=== PATIENT | male | born 1990 | race African-American/Black ===

== ENCOUNTER 2016-08-21 12:01 | Emergency (ER) | payer MEDICAID ==
[~2016-08-21] VITALS: Ht 182.9 cm; Wt 76.0 kg
[2016-08-21] MEDS ORDERED: IBUPROFEN 600MG TABLET PO ONE (14:15)
[2016-08-21 14:21] VITALS: BP 132/89
== END 2016-08-21 16:08 | disposition home or self-care (01) ==
LOC: ER 14:16
DX: M25.561 Pain in right knee (principal); M79.89 Other specified soft tissue disorders; F17.210 Nicotine dependence, cigarettes, uncomplicated; Z91.81 History of falling
CPT/HCPCS: 73562; 99284

== ENCOUNTER 2016-12-21 12:08 | Emergency (ER) | payer MEDICAID ==
[~2016-12-21] VITALS: Ht 182.9 cm; Wt 78.0 kg
[2016-12-21] MEDS ORDERED: VISCOUS LIDOCAINE 2% 15 ML UDC MM PRN (15:00)
[2016-12-21 16:15] VITALS: BP 124/85
== END 2016-12-21 16:22 | disposition home or self-care (01) ==
LOC: ER 12:37
DX: J06.9 Acute upper respiratory infection, unspecified (principal); J45.909 Unspecified asthma, uncomplicated
CPT/HCPCS: 87070; 87430; 87804; 99284

== ENCOUNTER 2016-12-22 19:53 | Emergency (ER) | payer MEDICAID ==
[~2016-12-22] VITALS: Ht 182.9 cm; Wt 78.0 kg
[2016-12-22 20:37] VITALS: BP 113/72
== END 2016-12-22 23:24 | disposition home or self-care (01) ==
LOC: ER 21:13
DX: H10.89 Other conjunctivitis (principal); J45.909 Unspecified asthma, uncomplicated
CPT/HCPCS: 99283

== ENCOUNTER 2017-02-10 18:09 | Emergency (ER) | payer MEDICAID ==
[~2017-02-10] VITALS: Ht 185.4 cm; Wt 64.0 kg
[2017-02-10] MEDS ORDERED: IBUPROFEN 600MG TABLET PO ONE (20:30)
[2017-02-10 21:43] VITALS: BP 128/74
== END 2017-02-10 21:43 | disposition home or self-care (01) ==
LOC: ER 18:29
DX: J02.9 Acute pharyngitis, unspecified (principal); R03.0 Elevated blood-pressure reading, without diagnosis of hypertension; J45.909 Unspecified asthma, uncomplicated; F17.210 Nicotine dependence, cigarettes, uncomplicated; F12.90 Cannabis use, unspecified, uncomplicated
CPT/HCPCS: 87070; 87430; 99284

== ENCOUNTER 2017-06-08 01:33 | Emergency (ER) | payer MEDICAID ==
[~2017-06-08] VITALS: Ht 182.9 cm; Wt 79.5 kg
[2017-06-08 01:40] VITALS: BP 122/82
== END 2017-06-08 03:20 | disposition left against medical advice (07) ==
LOC: ER 01:33
DX: R06.00 Dyspnea, unspecified (principal); Z53.21 Procedure and treatment not carried out due to patient leaving prior to being seen by health care provider

== ENCOUNTER 2017-06-08 14:14 | Emergency (ER) | payer MEDICAID ==
[~2017-06-08] VITALS: Ht 182.9 cm; Wt 79.5 kg
[2017-06-08 16:18] LABS: CLARITY URINE CLEAR (CLEAR); COLOR URINE YELLOW (YELLOW); KETONES URINE TRACE (NEGATIVE); LEUKOCYTE ESTERASE URINE NEGATIVE (NEGATIVE); NITRITE URINE NEGATIVE (NEGATIVE); OCCULT BLOOD URINE NEGATIVE (NEGATIVE); PROTEIN URINE NEGATIVE (NEGATIVE); UROBILINOGEN URINE 0.2 E.U./dL (0.2-1.0)
[2017-06-08] MEDS ORDERED: SODIUM CHLORIDE 0.9% 1,000 ML IV ONE (18:12)
[2017-06-08] MEDS ORDERED: ONDANSETRON HCL 4MG/2ML VIAL IV STA (18:12)
[2017-06-08] MEDS ORDERED: ONDANSETRON HCL 4MG/2ML VIAL IV ONE (18:15)
[2017-06-08 19:09] LABS: BASOPHILS % 0.8 % (0.0-2.0); EOSINOPHILS % 1.2 % (0.0-5.0); HEMATOCRIT. 45.6 % (42.0-52.0); HEMOGLOBIN. 15.9 g/dL (14.0-18.0); LYMPHOCYTES % 28.8 % (20.0-50.0); MEAN CORPUSCULAR HEMOGLOBIN 33.5 pg (28.0-32.0); MEAN CORPUSCULAR VOLUME 95.8 fL (80.0-94.0); MEAN PLATELET VOLUME 8.9 fl (7.4-10.4); MONOCYTES % 10.8 % (2.0-8.0); NEUTROPHILS % 58.4 % (40.0-76.0); PLATELET 265 x1000/uL (130-400); RED BLOOD CELL COUNT 4.76 mill/uL (4.7-6.1); RED CELL DISTRIBUTION WIDTH 12.8 % (11.6-14.6)
[2017-06-08 19:19] LABS: PROTHROMBIN TIME 10.4 sec (9.4-11.6)
[2017-06-08 19:21] LABS: CHLORIDE 101 mEq/L (98-107)
[2017-06-08] MEDS ORDERED: HYDROCODONE/ACETAMINOPHEN 5/325MG TABLET PO ONE (20:15)
[2017-06-08 22:28] VITALS: BP 136/62
== END 2017-06-08 22:31 | disposition home or self-care (01) ==
LOC: ER 15:37
DX: R10.9 Unspecified abdominal pain (principal); J45.909 Unspecified asthma, uncomplicated; F12.10 Cannabis abuse, uncomplicated; F17.200 Nicotine dependence, unspecified, uncomplicated
CPT/HCPCS: 36415; 74176; 80053; 81003; 83690; 85025; 85610; 96374; 99285; J2405; J7030

== ENCOUNTER 2017-06-26 18:07 | Emergency (ER) | payer MEDICAID ==
[~2017-06-26] VITALS: Ht 182.9 cm; Wt 79.0 kg
[2017-06-26] MEDS ORDERED: IBUPROFEN 800MG TABLET PO ONE (21:15)
[2017-06-26 21:26] VITALS: BP 133/71
== END 2017-06-26 22:13 | disposition home or self-care (01) ==
LOC: ER 18:07
DX: S89.91XA Unspecified injury of right lower leg, initial encounter (principal); J45.909 Unspecified asthma, uncomplicated; F12.10 Cannabis abuse, uncomplicated; X58.XXXA Exposure to other specified factors, initial encounter; Y93.67 Activity, basketball; Y92.310 Basketball court as the place of occurrence of the external cause; Y99.8 Other external cause status
CPT/HCPCS: 73562; 99284; L1830; Z7610